=== PATIENT | female | born 1930 | race Hispanic/Latino ===

== ENCOUNTER 2018-05-28 11:01 | Observation (INO) | payer OTHER, MEDICARE ==
--- NOTE | 2018-05-28 11:31 | RAD REPORT ---
EXAM DESCRIPTION: CT - Ct Stroke Brain Wo Cont - 05/28/2018 11:22 am CLINICAL HISTORY: Right arm numbness COMPARISON: None. TECHNIQUE: Computed axial tomography of the head was obtained. IV contrast was not requested. All CT scans are performed using dose optimization technique as appropriate and may include automated exposure control or mA/KV adjustment according to patient size. FINDINGS: An intracranial bleed is not seen . The ventricles are normal in caliber. No extra-axial fluid collection is noted. A 5 millimeter low-density areas present within the left th alamus. Mild low-density areas within periventricular deep white matter likely represent ischemic alexa nges secondary to small vessel disease. Fluid within the sinuses/ mastoids is not seen. IMPRESSION: 5 millimeter low-density area within the left thalamus probably representing a lacunar i nfarct of indeterminate age. If clinically indicated further evaluation with MRI could be obtained. Examination was discussed with Aliza in the Emergency Room at 11:20 a.m. 05/28/2018
[2018-05-28 11:46] LABS: Absolute Lymphocytes (CBC) 1.7 K/uL (0.7-4.9); Absolute Monocytes 0.9 K/uL (0.1-1.3); Absolute Neutrophil 8.1 K/uL (1.8-8.0); Basophils % 0.8 % (0-1.3); Eosinophils % 0.3 % (0-4.4); Hematocrit 41.9 % (36.0-45.0); Lymphocytes % 15.5 % (15.3-44.8); MCH 30.4 pg (27.0-35.0); MPV 8.8 fL (7.6-11.3); Monocytes % 8.4 % (3.3-12.3); RBC Red Blood Cell Count 4.71 M/uL (3.86-4.86)
[2018-05-28 11:50] LABS: Protime INR 0.91
[2018-05-28 12:01] LABS: ALT/SGPT 21 U/L (12-78); AST/SGOT 26 U/L (15-37); Alkaline Phosphatase 75 U/L (45-117); BUN Blood Urea Nitrogen 25 mg/dL (7-18); Bicarbonate 28 mmol/L (21-32); Bilirubin Direct 0.2 mg/dL (0-0.2); Bilirubin Total 0.5 mg/dL (0.2-1.0); Creatine Phosphokinase 107 U/L (26-192); Glucose Level 108 mg/dL (74-106); Potassium 3.5 mmol/L (3.5-5.1); Protein, Total 7.9 g/dL (6.4-8.2); Sodium Level 136 mmol/L (136-145); Troponin (Emerg Dept Use Only) < 0.02 ng/mL (0.0-0.045)
--- NOTE | 2018-05-28 12:07 | RAD REPORT ---
EXAM DESCRIPTION: RAD - Chest Single View - 05/28/2018 11:54 am CLINICAL HISTORY: ams Chest pain. COMPARISON: CHEST SINGLE VIEW dated 12/08/2012; CHEST PA AND LAT 2 VIEW dated 10/27/2007; CHEST PA AND LAT 2 VIEW dated 07/11/2006 FINDINGS: Portable technique limits examination quality. The lungs are emphysematous but grossly clear. The heart is normal in size. No displaced fractures. IMPRESSION: Mild COPD.
[2018-05-28 12:32] LABS: Urine Blood TRACE (NEG); Urine Glucose NEGATIVE (NEG); Urine Protein 3+ (NEG); Urine pH 7.5 (5.0-7.0)
--- NOTE | 2018-05-28 12:44 | ER ---
Nurse's Notes [facility] Name: Monica Rankin Age: 87 yrs Sex: Female : 1930 Arrival Date: 05/28/2018 Time: 11:05 Bed 16 Private MD: Lyssa Schwartz H Diagnosis: Hypertensive heart disease;Right hand tingling, 5 mm left thalmic infact: indeterminate age Presentation: 05/28 11:10 Presenting complaint: Patient states: "My blood pressure has been really high and I aj don't feel good. At 8:30 this morning my right arm started to tingle and feel strange." Face is symmetrical, speech is clear. Transition of care: patient was not received from another setting of care. 11:10 Method Of Arrival: Ambulatory 11:15 No acute neurological deficit is noted. Pre-hospital glucose is not applicable to this aj patient. Onset of symptoms was May 28, 2018 at 08:30. Risk Assessment: Do you want to hurt yourself or someone else? Patient reports no desire to harm self or others. Initial Sepsis Screen: Does the patient meet any 2 criteria? No. Patient's initial sepsis screen is negative. Does the patient have a suspected source of infection? No. Patient's initial sepsis screen is negative. Care prior to arrival: None. 11:15 Acuity: JESUS 2 Triage Assessment: 11:29 The onset of the patients symptoms was May 28, 2018 at 08:30. General: Appears in aj no apparent distress. uncomfortable, Behavior is cooperative, anxious. Pain: Denies pain. Neuro: Level of Consciousness is awake, alert, obeys commands, Oriented to person, place, time, situation, Appropriate for age Outsole Scheduler are equal bilaterally Moves all extremities. Full function Gait is steady, Speech is normal, Facial symmetry appears normal, Pupils are PERRLA, Tingling in right arm Reports blurred vision. Respiratory: Airway is patent Respiratory effort is even, unlabored, Respiratory pattern is regular, symmetrical. Derm: Skin is intact, is healthy with good turgor, Skin is pink, warm \\T\\ dry. normal. Stroke Activation: Symptom onset < 3 hours Physician: Stroke Attending; Name: ; Notified At: ; Arrived At: Physician: Chief Stroke Resident; Name: ; Notified At: ; Arrived At: Physician: Stroke Resident; Name: ; Notified At: ; Arrived At: Physician: ED Attending; Name: ; Notified At: ; Arrived At: Physician: ED Resident; Name: ; Notified At: ; Arrived At: Historical: - Allergies: : Codeine; aj : Iodine; aj : PENICILLINS; aj - Home Meds: : amlodipine 5 mg tab 1 tab once daily [Active]; Grey Chewable Aspirin 81 mg Oral chew 1 aj tab once daily [Active]; Calci-Chew Oral [Active]; dicyclomine 20 mg Oral tab 1 tab Q 6 hours [Active]; losartan Oral [Active]; simvastatin 20 mg Oral tab 1 tab [Active]; Vitamin C Oral [Active]; - PMHx: Hyperlipidemia; Hypertension; aj - PSHx: Knee surgery; hip surgery; Hysterectomy; aj - Immunization history:: Adult Immunizations up to date. - Social history:: Smoking status: Patient/guardian denies using tobacco. - Ebola Screening: : Patient negative for fever greater than or equal to 101.5 degrees Fahrenheit, and additional compatible Ebola Virus Disease symptoms Patient denies exposure to infectious person Patient denies travel to an Ebola-affected area in the 21 days before illness onset No symptoms or risks identified at this time. Screenin:00 Abuse screen: Denies threats or abuse. Denies injuries from another. Nutritional sg screening: No deficits noted. Tuberculosis screening: No symptoms or risk factors identified. Never had TB. Fall Risk None identified. Assessment: 12:00 The patient has not been NPO before screening. The patient is alert, and able to follow sg commands. The patient does not exhibit slurred or garbled speech. The patient is not exhibiting difficulty speaking. The patient does not exhibit difficulty understanding words. The patient is able to swallow own secretions with no drooling or need for suction. Patient tolerated one teaspoon of water. No drooling, immediate coughing, gurgling, or clearing of the throat was noted. The patient tolerated 90mL of water. No drooling, immediate coughing, gurgling, or clearing of the throat was noted. The patient passed the bedside swallow screening. Oral medications may be given as ordered. Contact Physician for further diet orders. 12:30 Reassessment: pt daughter in law at nurses station requesting an updated on results, pt sg and pt family update on POC and that the provider will be in the room to discuss the results with the pt. pt daughter in law reports that her the pt son is in route to the facility. 12:46 Reassessment: Patient appears in no apparent distress at this time. at bedside sg evaluating pt at this time, updating pt and pt family on results. 13:10 Reassessment: notified of pt VS, new orders received at this time. sg 14:08 Reassessment: Patient and/or family updated on plan of care and expected duration. Pain dm5 level reassessed. Patient is alert, oriented x 3, equal unlabored respirations, skin warm/dry/pink. family at bedside, no needs at this time Patient states feeling better. 15:17 Reassessment: Patient appears in no apparent distress at this time. No changes from tl3 previously documented assessment. Patient and/or family updated on plan of care and expected duration. Pain level reassessed. Patient is alert, oriented x 3, equal unlabored respirations, skin warm/dry/pink. report called to Millicent Sin RN. 15:19 Provider notified of bedside swallow screening results: Trent Clarke MD. tl3 15:19 T-PA (Activase) Screening: Contraindications: Intracranial hemorrhage and its risk tl3 factor and suspicion of subarachnoid bleed: Yes. Vital Signs: 11:29 BP 226 / 76; Pulse 76; Resp 20; Temp 98.0; Pulse Ox 99% on R/A; Weight 67.59 kg; Height aj 5 ft. 2 in. (157.48 cm); 12:58 BP 269 / 92; Pulse 78; Resp 18 S; Pulse Ox 99% on R/A; sg 14:08 BP 122 / 66; Pulse 56; Resp 18; Pulse Ox 97% on R/A; dm5 15:13 BP 131 / 61; Pulse 52; Resp 18; Pulse Ox 99% on R/A; tl3 11:29 Body Mass Index 27.25 (67.59 kg, 157.48 cm) aj NIH Stroke Scale Scores: 11:34 NIHSS Score: 0 dm5 12:30 NIHSS Score: 0 kdr ED Course: 11:05 Patient arrived in ED. mr 11:05 Lyssa Schwartz DO is Private Physician. mr 11:22 CT Stroke Brain w/o Contrast In Process Unspecified. EDMS 11:28 Triage completed. aj 11:29 Arm band placed on left wrist. Patient Taken to CT by nurse then returned to room. aj 11:30 Initial lab(s) drawn, by ED staff, sent to lab. IV inserted by ED staff. Inserted sg saline lock: 20 gauge in left antecubital area, using aseptic technique. Blood collected. 11:38 Garrett Capone PA is PHCP. cp 11:38 Trent Clarke MD is Attending Physician. cp 11:39 EKG done, by environmental sampling technician. reviewed by Trent lCarke MD. sm3 11:40 Corbin Post, DANIEL is Primary Nurse. sg 11:41 X-ray completed. Portable x-ray completed in exam room. Patient tolerated procedure jr1 well. 11:43 Stroke CXR 1 View In Process Unspecified. EDMS 12:42 Pat Whitman MD is Hospitalizing Provider. kdr 14:03 Lori Guzman, RN is Primary Nurse. dm5 15:17 Patient has correct armband on for positive identification. tl3 15:17 No provider procedures requiring assistance completed. Patient admitted, IV remains in tl3 place. Administered Medications: 13:19 Drug: cloNIDine 0.2 mg Route: PO; dm5 14:07 Follow up: Response: Blood pressure is lowered dm5 13:19 Drug: Lopressor 5 mg Route: IVP; Infused Over: 3 mins; Site: left antecubital; tl3 14:07 Follow up: Response: Blood pressure is lowered dm5 Point of Care Testing: Blood Glucose: 11:33 Blood Glucose: 95 mg/dL; dm5 Ranges: Outcome: 12:44 Decision to Hospitalize by Provider. kdr 15:17 Admitted to Tele accompanied by tech, via wheelchair, with chart, Report called to tl3 Millicent SANCHEZ 15:17 Condition: stable 15:17 Instructed on the need for admit. 15:47 Patient left the ED. tl3 NIH Stroke Scale - NIH Stroke Score Date: 05/28/2018 Time: 11:34 Total Score = 0 1a. Level of Consciousness (LOC) - 0(Alert) 1b. Level of Consciousness (LOC) (Year \\T\\ Age) - 0(Both) 1c. LOC Commands (Open \\T\\ Closes Eyes/Airline Pilot Flight Instructor) - 0(Both) 2. Best Gaze (Lateral Gaze Paresis) - 0(Normal) 3. Visual Field Loss - 0(No visual loss) 4. Facial Palsy - 0(Normal) 5a. Left Arm: Motor (10-second hold) - 0(No drift) 5b. Right Arm: Motor (10-second hold) - 0(No drift) 6a. Left Leg: Motor (5-second hold - always test supine) - 0(No drift) 6b. Right Leg: Motor (5-second hold - always test supine) - 0(No drift) 7. Limb Ataxia (finger/nose \\T\\ heel/carvajal - test with eyes open) - 0(Absent) 8. Sensory Loss (pinprick arms/legs/face) - 0(Normal) 9. Best Language: Aphasia (description/naming/reading) - 0(No aphasia) 10. Dysarthria (speech clarity - read or repeat words) - 0(Normal) 11. Extinction and Inattention (visual/tactile/auditory/spatial/personal) - 0(No abnormality) Initials: dm5 NIH Stroke Scale - NIH Stroke Score Date: 05/28/2018 Time: 12:30 Total Score = 0 1a. Level of Consciousness (LOC) - 0(Alert) 1b. Level of Consciousness (LOC) (Year \\T\\ Age) - 0(Both) 1c. LOC Commands (Open \\T\\ Closes Eyes/Airline Pilot Flight Instructor) - 0(Both) 2. Best Gaze (Lateral Gaze Paresis) - 0(Normal) 3. Visual Field Loss - 0(No visual loss) 4. Facial Palsy - 0(Normal) 5a. Left Arm: Motor (10-second hold) - 0(No drift) 5b. Right Arm: Motor (10-second hold) - 0(No drift) 6a. Left Leg: Motor (5-second hold - always test supine) - 0(No drift) 6b. Right Leg: Motor (5-second hold - always test supine) - 0(No drift) 7. Limb Ataxia (finger/nose \\T\\ heel/carvajal - test with eyes open) - 0(Absent) 8. Sensory Loss (pinprick arms/legs/face) - 0(Normal) 9. Best Language: Aphasia (description/naming/reading) - 0(No aphasia) 10. Dysarthria (speech clarity - read or repeat words) - 0(Normal) 11. Extinction and Inattention (visual/tactile/auditory/spatial/personal) - 0(No abnormality) Initials: kdr Signatures: Dispatcher [employer] Lori Velazquez RN RN dm5 Corbin Post RN Tiffany Hough RN Trent Gordon MD MD [facility] Janice Santiago mr [place], Katarzyna jr1 Garrett Capone PA PA cp Lowrey, Tammy, RN RN tl3 Aida Denson sm3
--- NOTE | 2018-05-28 12:45 | EDPHYS ---
Physician Documentation [facility] Name: Monica Rankin Age: 87 yrs Sex: Female : 1930 Arrival Date: 05/28/2018 Time: 11:05 Bed 16 Private MD: Lyssa Schwartz H ED Physician Trent Clarke HPI: 05/28 15:47 This 87 yrs old Female presents to ER via Ambulatory with complaints of High kdr Blood Pressure, Doesn't Feel Right. 15:49 The patient states that her BP has been poorly controlled for the last week and when it kdr gets elevated, she feels bad. She has had no focal c/o until this morning when she awoke, she felt that her right hand was tingling and numb. The discomfort and not changed since she awakened. She has not had this before and no other focal c/o. Onset: The symptoms/episode began/occurred at an unknown time. Severity of symptoms: At their worst the symptoms were very mild in the emergency department the symptoms are unchanged. The patient has not experienced similar symptoms in the past. The patient has been recently seen by a physician: the patient's primary care provider. Historical: - Allergies: 11:29 Codeine; aj 11:29 Iodine; aj 11:29 PENICILLINS; aj - Home Meds: 11:29 amlodipine 5 mg tab 1 tab once daily [Active]; Grey Chewable Aspirin 81 mg Oral chew 1 aj tab once daily [Active]; Calci-Chew Oral [Active]; dicyclomine 20 mg Oral tab 1 tab Q 6 hours [Active]; losartan Oral [Active]; simvastatin 20 mg Oral tab 1 tab [Active]; Vitamin C Oral [Active]; - PMHx: 11:29 Hyperlipidemia; Hypertension; aj - PSHx: 11:29 Knee surgery; hip surgery; Hysterectomy; aj - Immunization history:: Adult Immunizations up to date. - Social history:: Smoking status: Patient/guardian denies using tobacco. - Ebola Screening: : Patient negative for fever greater than or equal to 101.5 degrees Fahrenheit, and additional compatible Ebola Virus Disease symptoms Patient denies exposure to infectious person Patient denies travel to an Ebola-affected area in the 21 days before illness onset No symptoms or risks identified at this time. ROS: 15:49 Constitutional: Negative for fever, chills, and weight loss - vague symptoms whioch she kdr has difficulty describing Eyes: Negative for injury, pain, redness, and discharge, ENT: Negative for injury, pain, and discharge, Neck: Negative for injury, pain, and swelling, Cardiovascular: Negative for chest pain, palpitations, and edema, Respiratory: Negative for shortness of breath, cough, wheezing, and pleuritic chest pain, Abdomen/GI: Negative for abdominal pain, nausea, vomiting, diarrhea, and constipation, Back: Negative for injury and pain, : Negative for injury, bleeding, discharge, and swelling, MS/Extremity: Negative for injury and deformity, Skin: Negative for injury, rash, and discoloration, Psych: Negative for depression, anxiety, suicide ideation, homicidal ideation, and hallucinations, Allergy/Immunology: Negative for hives, rash, and allergies, Endocrine: Negative for neck swelling, polydipsia, polyuria, polyphagia, and marked weight changes, Hematologic/Lymphatic: Negative for swollen nodes, abnormal bleeding, and unusual bruising. 15:49 Neuro: Positive for tingling, of the right hand. Exam: 15:49 Constitutional: This is a well developed, well nourished patient who is awake, alert, kdr and in no acute distress. Head/Face: Normocephalic, atraumatic. Eyes: Pupils equal round and reactive to light, extra-ocular motions intact. Lids and lashes normal. Conjunctiva and sclera are non-icteric and not injected. Cornea within normal limits. Periorbital areas with no swelling, redness, or edema. Neck: Trachea midline, no thyromegaly or masses palpated, and no cervical lymphadenopathy. Supple, full range of motion without nuchal rigidity, or vertebral point tenderness. No Meningismus. Chest/axilla: Normal chest wall appearance and motion. Nontender with no deformity. No lesions are appreciated. Cardiovascular: Regular rate and rhythm with a normal S1 and S2. No gallops, murmurs, or rubs. Normal PMI, no JVD. No pulse deficits. Respiratory: Lungs have equal breath sounds bilaterally, clear to auscultation and percussion. No rales, rhonchi or wheezes noted. No increased work of breathing, no retractions or nasal flaring. Abdomen/GI: Soft, non-tender, with normal bowel sounds. No distension or tympany. No guarding or rebound. No evidence of tenderness throughout. Back: No spinal tenderness. No costovertebral tenderness. Full range of motion. Skin: Warm, dry with normal turgor. Normal color with no rashes, no lesions, and no evidence of cellulitis. MS/ Extremity: Pulses equal, no cyanosis. Neurovascular intact. Full, normal range of motion. Neuro: Awake and alert, GCS 15, oriented to person, place, time, and situation. Cranial nerves II-XII grossly intact. Motor strength 5/5 in all extremities. Sensory grossly intact. Cerebellar exam normal. Normal gait. Psych: Awake, alert, with orientation to person, place and time. Behavior, mood, and affect are within normal limits. Vital Signs: 11:29 BP 226 / 76; Pulse 76; Resp 20; Temp 98.0; Pulse Ox 99% on R/A; Weight 67.59 kg; Height aj 5 ft. 2 in. (157.48 cm); 12:58 BP 269 / 92; Pulse 78; Resp 18 S; Pulse Ox 99% on R/A; sg 14:08 BP 122 / 66; Pulse 56; Resp 18; Pulse Ox 97% on R/A; dm5 15:13 BP 131 / 61; Pulse 52; Resp 18; Pulse Ox 99% on R/A; tl3 11:29 Body Mass Index 27.25 (67.59 kg, 157.48 cm) NIH Stroke Scale Scores: 11:34 NIHSS Score: 0 dm5 12:30 NIHSS Score: 0 kdr MDM: 11:38 Patient medically screened. cp 12:44 Data reviewed: vital signs, nurses notes, lab test result(s), EKG, radiologic studies. kdr Counseling: I had a detailed discussion with the patient and/or guardian regarding: the historical points, exam findings, and any diagnostic results supporting the discharge/admit diagnosis, the presence of at least one elevated blood pressure reading (>120/80) during this emergency department visit, lab results, radiology results, the need for further work-up and treatment in the hospital. Physician consultation: Aguila Higgins MD was called at 12:15, was contacted at 12:15, regarding admission, consult, patient's condition, need to evaluate the patient as soon as possible, and will see patient in inpatient room. ED course: Since stroke scale 0 and onset unclear (note upon awakening at 07:30), tPA not indicated. 05/28 11:18 Order name: Hepatic Function; Complete Time: 12:29 snw 05/28 11:18 Order name: Ckmb; Complete Time: 12:29 snw 05/28 11:18 Order name: CPK; Complete Time: 12:29 snw 05/28 11:18 Order name: Troponin (emerg Dept Use Only); Complete Time: 12:29 snw 05/28 11:18 Order name: Basic Metabolic Panel; Complete Time: 12:29 snw 05/28 11:18 Order name: CBC with Diff; Complete Time: 12:29 snw 05/28 11:18 Order name: Protime (+inr); Complete Time: 12:29 snw 05/28 11:18 Order name: Ptt, Activated; Complete Time: 12:29 snw 05/28 11:18 Order name: Urine Microscopic Only snw 05/28 11:18 Order name: CT Stroke Brain w/o Contrast; Complete Time: 12:29 snw 05/28 11:18 Order name: Stroke CXR 1 View; Complete Time: 12:29 snw 05/28 12:26 Order name: Urine Dipstick--Ancillary (enter results); Complete Time: 12:36 bd 05/28 11:18 Order name: Call for Old EKG; Complete Time: 12:17 snw 05/28 11:18 Order name: EKG; Complete Time: 11:18 snw 05/28 11:18 Order name: Accucheck; Complete Time: 12:43 snw 05/28 11:18 Order name: Cardiac monitoring; Complete Time: 12:43 snw 05/28 11:18 Order name: EKG - Nurse/Tech; Complete Time: 12:43 snw 05/28 11:18 Order name: IV Saline Lock; Complete Time: 12:43 snw 05/28 11:18 Order name: Labs collected and sent; Complete Time: 12:43 snw 05/28 11:18 Order name: NPO; Complete Time: 12:43 snw 05/28 11:18 Order name: O2 Per Protocol; Complete Time: 12:44 snw 05/28 11:18 Order name: O2 Sat Monitoring; Complete Time: 12:44 snw 05/28 11:18 Order name: Stroke Swallow Screen; Complete Time: 12:44 snw 05/28 11:18 Order name: Urine Dipstick-Ancillary (obtain specimen); Complete Time: 12:44 snw Administered Medications: 13:19 Drug: cloNIDine 0.2 mg Route: PO; dm5 14:07 Follow up: Response: Blood pressure is lowered dm5 13:19 Drug: Lopressor 5 mg Route: IVP; Infused Over: 3 mins; Site: left antecubital; tl3 14:07 Follow up: Response: Blood pressure is lowered dm5 Point of Care Testing: Blood Glucose: 11:33 Blood Glucose: 95 mg/dL; dm5 Ranges: Critical Glucose Levels:Adult <50 mg/dl or >400 mg/dl <40 mg/dl or >180 mg/dl Disposition: 05/28/18 12:44 Hospitalization ordered by Pat Whitman for Observation. Preliminary diagnosis are Hypertensive heart disease, Right hand tingling, 5 mm left thalmic infact: indeterminate age. - Bed requested for Telemetry/MedSurg (observation). - Status is Observation. tl3 - Condition is Fair. - Problem is new. - Symptoms are unchanged. UTI on Admission? No NIH Stroke Scale - NIH Stroke Score Date: 05/28/2018 Time: 11:34 Total Score = 0 1a. Level of Consciousness (LOC) - 0(Alert) 1b. Level of Consciousness (LOC) (Year \T\ Age) - 0(Both) 1c. LOC Commands (Open \T\ Closes Eyes/Correctional Officer Captain) - 0(Both) 2. Best Gaze (Lateral Gaze Paresis) - 0(Normal) 3. Visual Field Loss - 0(No visual loss) 4. Facial Palsy - 0(Normal) 5a. Left Arm: Motor (10-second hold) - 0(No drift) 5b. Right Arm: Motor (10-second hold) - 0(No drift) 6a. Left Leg: Motor (5-second hold - always test supine) - 0(No drift) 6b. Right Leg: Motor (5-second hold - always test supine) - 0(No drift) 7. Limb Ataxia (finger/nose \T\ heel/carvajal - test with eyes open) - 0(Absent) 8. Sensory Loss (pinprick arms/legs/face) - 0(Normal) 9. Best Language: Aphasia (description/naming/reading) - 0(No aphasia) 10. Dysarthria (speech clarity - read or repeat words) - 0(Normal) 11. Extinction and Inattention (visual/tactile/auditory/spatial/personal) - 0(No abnormality) Initials: dm5 NIH Stroke Scale - NIH Stroke Score Date: 05/28/2018 Time: 12:30 Total Score = 0 1a. Level of Consciousness (LOC) - 0(Alert) 1b. Level of Consciousness (LOC) (Year \T\ Age) - 0(Both) 1c. LOC Commands (Open \T\ Closes Eyes/Correctional Officer Captain) - 0(Both) 2. Best Gaze (Lateral Gaze Paresis) - 0(Normal) 3. Visual Field Loss - 0(No visual loss) 4. Facial Palsy - 0(Normal) 5a. Left Arm: Motor (10-second hold) - 0(No drift) 5b. Right Arm: Motor (10-second hold) - 0(No drift) 6a. Left Leg: Motor (5-second hold - always test supine) - 0(No drift) 6b. Right Leg: Motor (5-second hold - always test supine) - 0(No drift) 7. Limb Ataxia (finger/nose \T\ heel/carvajal - test with eyes open) - 0(Absent) 8. Sensory Loss (pinprick arms/legs/face) - 0(Normal) 9. Best Language: Aphasia (description/naming/reading) - 0(No aphasia) 10. Dysarthria (speech clarity - read or repeat words) - 0(Normal) 11. Extinction and Inattention (visual/tactile/auditory/spatial/personal) - 0(No abnormality) Initials: kdr Signatures: Dispatcher [employer] EDMS Day Chavez Deana, RN RN dm5 Corbin Post RN Tiffany Hough RN RN aj Rittger, Kevin, MD MD kdr Therrien, Shelly, ACUTE CARE PHYSICAL THERAPIST-C ACUTE CARE PHYSICAL THERAPIST-Csnw Garrett Capone PA PA cp Lowrey, Tammy, RN RN tl3 Tesha Coleman Corrections: (The following items were deleted from the chart) 14:58 12:44 Hospitalization Ordered by Pat Whitman MD for Observation. Preliminary bd diagnosis is Hypertensive heart disease; Right hand tingling, 5 mm left thalmic infact: indeterminate age. Bed requested for Telemetry/MedSurg (observation). Status is Observation. Condition is Fair. Problem is new. Symptoms are unchanged. UTI on Admission? No. kdr 15:47 14:58 05/28/2018 12:44 Hospitalization Ordered by Pat Whitman MD for tl3 Observation. Preliminary diagnosis is Hypertensive heart disease; Right hand tingling, 5 mm left thalmic infact: indeterminate age. Bed requested for Telemetry/MedSurg (observation). Status is Observation. Condition is Fair. Problem is new. Symptoms are unchanged. UTI on Admission? No. bd
[2018-05-28] MEDS ORDERED: cloNIDine HCl 0.1 MG TAB ONE (13:14)
[2018-05-28] MEDS ORDERED: METOPROLOL TARTRATE 5 MG/5 ML INJ IV ONE (13:14)
--- NOTE | 2018-05-28 14:07 | P.HP ---
Certification for Inpatient Patient admitted to: Inpatient With expected LOS: >2 Midnights Practitioner: I am a practitioner with admitting privileges, knowledge of patient current condition, hospital course, and medical plan of care. Services: Services provided to patient in accordance with Admission requirements found in Title 42 Section 412.3 of the Code of Federal Regulations Patient History Date of Service: 05/28/18 Primary Care Provider: Dr Mercer Reason for admission: CVA History of Present Illness: This is a 87-year-old female with significant past medical history Of high blood pressure, hyperlipidemia, who presented to the ED complaining of having some neck pain and uncontrolled hypertension. Patient stated that this morning when she woke up she was having some numbness and tingling in bilateral upper extremities and thus decided to come to the ER for further workup. Patient stated that she has been having elevated blood pressure for past week and has been followed up with her primary care doctor has been adjusting her blood pressure medication for past couple of weeks. Patient denies having any other symptoms at this time. It is denies having any shortness of breath fever chills nausea vomiting chest pain or any other neurological deficits. In the ER patient was found to have hypertensive urgency along with CT scan which was consistent with thalamic infarct and thus was referred over to admission for further workup. Allergies iodine Allergy (Severe, Verified 12/08/12 11:20) Anaphylaxis codeine [Codeine] Allergy (Intermediate, Verified 12/08/12 11:20) Nausea Penicillins Allergy (Intermediate, Verified 12/08/12 11:20) Hives Home medications list reviewed: Yes - Past Medical/Surgical History Has patient received pneumonia vaccine in the past: No Diabetic: No -: HTN -: HLP Review of Systems 10-point ROS is otherwise unremarkable Physical Examination - Physical Exam General: Alert, In no apparent distress HEENT: Atraumatic, PERRLA, Mucous membr. moist/pink, EOMI, Sclerae nonicteric Neck: Supple, 2+ carotid pulse no bruit, No LAD, Without JVD or thyroid abnormality Respiratory: Clear to auscultation bilaterally, Normal air movement Cardiovascular: Regular rate/rhythm, Normal S1 S2 Gastrointestinal: Normal bowel sounds, No tenderness Musculoskeletal: No tenderness Integumentary: No rashes Neurological: Normal gait, Normal speech, Normal strength at 5/5 x4 extr, Normal tone, Normal affect Lymphatics: No axilla or inguinal lymphadenopathy - Studies Laboratory Data (last 24 hrs) 05/28/18 11:28: PT 10.7, INR 0.91, APTT 34.1 05/28/18 11:28: WBC 10.9, Hgb 14.3, Hct 41.9, Plt Count 221 05/28/18 11:28: Sodium 136, Potassium 3.5, BUN 25 H, Creatinine 0.80, Glucose 108 H, Total Bilirubin 0.5, AST 26, ALT 21, Alkaline Phosphatase 75 Assessment and Plan - Problems (Diagnosis) (1) Hypertensive urgency Current Visit: Yes Status: Acute Plan: Hypertensive urgency at this time. -will restart home medication. -permissive hypertension due to recent changes in the head CT. Will should be 160/90 at this time. (2) Thalamic infarction Current Visit: Yes Status: Acute Plan: Head CT without make infarct. Unknown timeframe. -will get MRI stroke protocol, carotid Doppler, echocardiogram at this time. -will get lab work RPR, vitamin B12, ESR as well. -aspirin Plavix and Lipitor ordered already -neurology consultation at this time. (3) HTN (hypertension) Current Visit: Yes Status: Chronic (4) Hyperlipidemia Current Visit: Yes Status: Chronic Discharge Plan: Home Plan to discharge in: 72 Hours - Advance Directives Does patient have a Living Will: No Does patient have a Durable POA for Healthcare: No - Code Status/Comfort Care Code Status Assessed: Yes Critical Care: No
[2018-05-28] MEDS ORDERED: ACETAMINOPHEN 500 MG TAB PO PRN (16:00)
[2018-05-28] MEDS ORDERED: ONDANSETRON 4 MG/2 ML VIAL IV PRN (16:00)
[2018-05-28 16:24] LABS: RPR Titer ND
--- NOTE | 2018-05-28 19:08 | RAD REPORT ---
EXAM DESCRIPTION: MRI - MRA Neck W/Wo Cont - 05/28/2018 6:56 pm CLINICAL HISTORY: CVA COMPARISON: None. TECHNIQUE: Magnetic resonance angiogram of the neck was performed. 15 cc MultiHance was administered intravenously. . 3D MIP reconstruction was performed FINDINGS: Mild plaque is present the within the common carotid, internal carotid and external caroti d arteries. An aneurysm is not seen. The left vertebral artery is more dominant than the right without visualization of an abnormality. IMPRESSION: No significant abnormality is displayed
--- NOTE | 2018-05-28 19:10 | RAD REPORT ---
EXAM DESCRIPTION: MRI - MRA Head Wo Cont - 05/28/2018 6:57 pm COMPARISON: None. TECHNIQUE: Magnetic resonance angiogram of the head was performed. 3D MIP reconstruction was performed FINDINGS: The visualized anterior cerebral, middle cerebral, posterior cerebral, basilar and distal internal carotid arteries do not demonstrate a significant stenosis. An aneurysm is not seen IMPRESSION: Unremarkable MRA head
--- NOTE | 2018-05-28 19:18 | RAD REPORT ---
EXAM DESCRIPTION: MRI - Brain W/Wo Cont - 05/28/2018 6:56 pm CLINICAL HISTORY: CVA COMPARISON: Head CT May 28, 2018 TECHNIQUE: Axial, sagittal, and coronal magnetic images of the brain were obtained. 15 cc MultiHance was administered intravenously FINDINGS: 6 millimeter area of abnormal signal within the left thalamus has the appearance of an old infarct. Small areas of abnormal signal within the basal ganglia are old lacunar infarcts. Mild to m oderate signal within periventricular and deep white matter likely represents ischemic changes second woodrow to small vessel disease. Diffusion-weighted/ADC mapping does not reveal evidence of acute infarction. The ventricles are normal caliber. No abnormal enhancement within the brain is seen. An extra-axial fluid collection is not noted. Fluid within the sinuses/mastoids is not seen IMPRESSION: No acute intracranial abnormality is seen
--- NOTE | 2018-05-28 19:37 | RAD REPORT ---
EXAM DESCRIPTION: USCarotid Artery Bilateral05/28/2018 7:26 pm CLINICAL HISTORY: cva FINDINGS: The velocity of the right internal carotid artery equals 150 cm/sec. The right ICA/CCA rat io 2.6 The velocity of the left internal carotid artery equals 139 cm/sec. The left ICA/CCA ratio 2.2 Mild plaque is present within the carotid arteries. The carotid arteries are tortuous The vertebral arteries demonstrate antegrade flow IMPRESSION: Mild plaque within the carotid arteries without evidence of a hemodynamically significan t stenosis. Elevated internal carotid artery velocities are likely secondary to tortuosity
[2018-05-28] MEDS: HYDRALAZINE HCL 25 MG TABLET PO SCH (20:51)
[2018-05-28] MEDS ORDERED: HOME MED 1 EA UNK (Hydralazine Hcl [Apresoline] 1 TAB) PO SCH (21:00)
[2018-05-28] MEDS ORDERED: ATORVASTATIN 80 MG TAB PO SCH (21:00)
[2018-05-28] MEDS ORDERED: PNEUMOCOCCAL VACCINE 0.5 ML IMVAC ONE (21:00)
[2018-05-28 23:07] LABS: RPR (Rapid Plasma Reagin) NON-REACT (NON-REACT)
[2018-05-29 04:48] LABS: Absolute Monocytes 0.8 K/uL (0.1-1.3); Absolute Neutrophil 4.5 K/uL (1.8-8.0); Hematocrit 36.2 % (36.0-45.0); Lymphocytes % 26.5 % (15.3-44.8); MCH 30.4 pg (27.0-35.0); MCV 87.5 fL (80-100); MPV 8.8 fL (7.6-11.3); Monocytes % 10.9 % (3.3-12.3); RBC Red Blood Cell Count 4.14 M/uL (3.86-4.86)
[2018-05-29 05:18] LABS: ALT/SGPT 18 U/L (12-78); AST/SGOT 20 U/L (15-37); Albumin 3.3 g/dL (3.4-5.0); Alkaline Phosphatase 61 U/L (45-117); BUN Blood Urea Nitrogen 24 mg/dL (7-18); Bicarbonate 30 mmol/L (21-32); Bilirubin Total 0.7 mg/dL (0.2-1.0); Glucose Level 91 mg/dL (74-106); HDL Cholesterol 69 mg/dL (40-60); LDL, Direct 64 mg/dL (100-129); Magnesium 1.9 mg/dL (1.8-2.4); Phosphorus 3.6 mg/dL (2.5-4.9); Potassium 3.4 mmol/L (3.5-5.1); Protein, Total 6.3 g/dL (6.4-8.2); Sodium Level 138 mmol/L (136-145)
[2018-05-29] MEDS ORDERED: POTASSIUM CL SA 10 MEQ TAB PO ONE (06:08)
--- NOTE | 2018-05-29 07:37 | EKG ---
Test Date: 2018-05-28 Test Time: 11:33:39 Wire Spinner: JENNY MEASUREMENT RESULTS: Intervals: Rate: 83 PA: 162 QRSD: 70 QT: 404 QTc: 474 Bard: P: 54 PA: 162 QRS: 19 T: 60 INTERPRETIVE STATEMENTS: Sinus rhythm with premature atrial complexes Otherwise normal ECG Compared to ECG 12/08/2012 12:14:32 Atrial premature complex(es) now present Sinus bradycardia no longer present Electronically Signed On 05-29-18 07:34:30 CDT by Emre Salinas
[2018-05-29] MEDS ORDERED: METOPROLOL XL 50 MG TAB PO SCH (09:00)
[2018-05-29] MEDS ORDERED: ASPIRIN EC 81 MG TAB PO SCH (09:00)
[2018-05-29] MEDS ORDERED: MONTELUKAST 10 MG TAB PO SCH (09:00)
[2018-05-29] MEDS ORDERED: CLOPIDOGREL 75 MG TABLET PO SCH (09:00)
[2018-05-29] MEDS: HYDRALAZINE HCL 25 MG TABLET PO SCH (10:15)
--- NOTE | 2018-05-29 10:20 | RAD REPORT ---
EXAM DESCRIPTION: RAD - Barium Swallow Modified - 05/29/2018 9:40 am CLINICAL HISTORY: Difficulty swallowing COMPARISON: None. TECHNIQUE: The patient was given liquid, semi-solid and solid forms of barium. Lateral view fluorosc opic imaging was performed in conjunction with speech pathology service. FINDINGS: Approximately 26 CVA loop sequences were obtained. Fluoro time was 3 minutes 58 seconds. Laryngeal penetration occurred with thin liquid barium. There was residual contrast in the valleculae , piriform sinuses and along the posterior wall. No aspiration confirmed. Diminished esophageal peris talsis noted. IMPRESSION: Modified barium swallow as detailed above and on speech pathology report.
--- NOTE | 2018-05-29 12:16 | ECHO ---
HEIGHT: 5 ft 2 in WEIGHT: 149 lb 0 oz DATE OF STUDY: 05/29/[address]: Pat Whitman MD 2-DIMENSIONAL: YES M.MODE: YES DOPPLER: YES COLOR FLOW: YES TDS: PORTABLE: DEFINITY: BUBBLE STUDY: DIAGNOSIS: STROKE CARDIAC HISTORY: CATHERIZATION: NO SURGERY: NO PROSTHETIC VALVE: NO PACEMAKER: NO MEASUREMENTS (cm) DIASTOLIC (NORMALS) SYSTOLIC (NORMALS) IVSd 1.1 (0.6-1.2) LA Diam 3.5 (1.9-4.0) LVEF 79% LVIDd 4.3 (3.5-5.7) LVIDs 2.3 (2.0-3.5) %FS 47% LVPWd 1.0 (0.6-1.2) 2 DIMENSIONAL ASSESSMENT: RIGHT ATRIUM: NORMAL LEFT ATRIUM: NORMAL RIGHT VENTRICLE: NORMAL LEFT VENTRICLE: NORMAL TRICUSPID VALVE: NORMAL MITRAL VALVE: MITRAL ANNULAR CALCIFICATION PULMONIC VALVE: NORMAL AORTIC VALVE: NORMAL PERICARDIAL EFFUSION: NONE AORTIC ROOT: NORMAL LEFT VENTRICULAR WALL MOTION: NORMAL DOPPLER/COLOR FLOW: MILD TRICUSPID REGURGITATION. COMMENTS: MILD TRICUSPID REGURGITATION. NORMAL RIGHT VENTRICULAR SYSTOLIC PRESSURE. MITRAL ANNULAR CALCIFICATION. NORMAL LEFT VENTRICULAR SIZE AND FUNCTION. NO CLOT. NO VEGETATION. TECHNOLOGIST: STEVE [place]
--- NOTE | 2018-05-29 14:24 | P.SSS ---
Patient History Date of Service: 05/29/18 Primary Care Provider: Dr Mercer Reason for admission: CVA History of Present Illness: This is a 87-year-old female with significant past medical history Of high blood pressure, hyperlipidemia, who presented to the ED complaining of having some neck pain and uncontrolled hypertension. Patient stated that this morning when she woke up she was having some numbness and tingling in bilateral upper extremities and thus decided to come to the ER for further workup. Patient stated that she has been having elevated blood pressure for past week and has been followed up with her primary care doctor has been adjusting her blood pressure medication for past couple of weeks. Patient denies having any other symptoms at this time. It is denies having any shortness of breath fever chills nausea vomiting chest pain or any other neurological deficits. In the ER patient was found to have hypertensive urgency along with CT scan which was consistent with thalamic infarct and thus was referred over to admission for further workup. Allergies iodine Allergy (Severe, Verified 12/08/12 11:20) Anaphylaxis codeine [Codeine] Allergy (Intermediate, Verified 12/08/12 11:20) Nausea Penicillins Allergy (Intermediate, Verified 12/08/12 11:20) Hives Home Medications: Hydralazine HCl [Apresoline] 1 tab PO BID 05/28/18 Metoprolol Succinate 1 tab PO DAILY 05/28/18 Montelukast [Singulair*] 1 tab PO DAILY 05/28/18 Simvastatin 1 tab PO DAILY 05/28/18 - Past Medical/Surgical History Has patient received pneumonia vaccine in the past: No Diabetic: No -: HTN -: HLP -: arthritis -: arthritis in spine. -: L rotator cuff deterioration -: L hip surg -: bilat TKR - Family History Mother -: Heart disease Notes: CHF Father -: Heart disease, Hypertension - Social History Smoking Status: Former smoker Alcohol use: No CD- Drugs: No Caffeine use: Yes Place of Residence: Home Review of Systems 10-point ROS is otherwise unremarkable Physical Examination - Vital Signs Temperature: 98.1 F Blood Pressure: 150/63 Pulse: 60 Respirations: 18 Pulse Ox (%): 96 - Physical Exam General: Alert, In no apparent distress HEENT: Atraumatic, PERRLA, Mucous membr. moist/pink, EOMI, Sclerae nonicteric Neck: Supple, 2+ carotid pulse no bruit, No LAD, Without JVD or thyroid abnormality Respiratory: Clear to auscultation bilaterally, Normal air movement Cardiovascular: Regular rate/rhythm, Normal S1 S2 Gastrointestinal: Normal bowel sounds, No tenderness Musculoskeletal: No tenderness Integumentary: No rashes Neurological: Normal gait, Normal speech, Normal strength at 5/5 x4 extr, Normal tone, Normal affect Lymphatics: No axilla or inguinal lymphadenopathy - Diagnosis (Problem(s)) (1) Hypertensive urgency Current Visit: Yes Status: Acute Plan: Resolved (2) Thalamic infarction Current Visit: Yes Status: Chronic Plan: Chronic (3) HTN (hypertension) Current Visit: Yes Status: Chronic Qualifiers: Hypertension type: essential hypertension Qualified Code(s): I10 - Essential (primary) hypertension (4) Hyperlipidemia Current Visit: Yes Status: Chronic Treatment Summary: Overall during the hospital stay patient remained stable The patient was initially admitted to the hospital for bilateral upper extremity numbness plan hypertensive urgency. Patient was found initially on head CT to have a thalamic infarct. MRI however was consistent with chronic thalamic infarct along with micro vasculature infarct as well. Patient did have PT consulted here in the hospital and speech consulted here in the hospital who recommended modified barium swallow. Patient modified barium swallow was negative and patient then was discharged home under stable condition. Patient was asked to follow up with neurology outpatient as there is no acute findings at this time. Patient was given prescription for aspirin and Lipitor for prevention of stroke in the future. Patient was also educated extensively on diet and exercise to lower her blood pressure as this is the reason probably for her high blood pressure. Patient then was discharged home under stable condition - Disposition Disposition: ROUTINE DISCHARGE Condition: GOOD Patient Discharge Instructions: Please f.u with Dr Higgins in 1 to 2 week post discharge. New medication. ASA 81mg PO daily. Lipitor 80mg Daily. Stop. Simvastain. Continue with all other medication as precribed. Diet: Regular Activity: Ad beer
== END 2018-05-29 16:11 | disposition home or self-care (01) ==
LOC: ER 11:01 → OBSVTOIN 12:44 → INTOOBSV 12:44 → 4TH 12:44
PROVIDERS: ADMIT Family Medicine; ATTEND Family Medicine
DX: I16.0 Hypertensive urgency (principal); I10 Essential (primary) hypertension; E78.5 Hyperlipidemia, unspecified; Z87.891 Personal history of nicotine dependence; Z88.0 Allergy status to penicillin; R93.0 Abnormal findings on diagnostic imaging of skull and head, not elsewhere classified
CPT/HCPCS: 36415; 70450; 70544; 70549; 70553; 71045; 74230; 80048; 80053; 80061; 80076; 81003; 82550; 82553; 82607; 82962; 83721; 83735; 84100; 84132; 84443; 84484; 85025 ×2; 85610; 85652; 85730; 86592; 92610; 93005; 93306; 93880; 96374; 97163; 99285; A9577; G0378 ×2

== ENCOUNTER 2018-05-29 23:42 | Emergency (ER) | payer OTHER, MEDICARE ==
[2018-05-30] MEDS ORDERED: ACETAMINOPHEN 500 MG TAB ONE (01:34)
--- NOTE | 2018-05-30 02:29 | ER ---
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 I started a new medication today but my blood pressure is still very high. Transition of care: patient was not received from another setting of care. Onset of symptoms was May 30, 2018. Risk Assessment: Do you want to hurt yourself or someone else? Patient reports no desire to harm self or others. Initial Sepsis Screen: Does the patient meet any 2 criteria? No. Patient's initial sepsis screen is negative. Does the patient have a suspected source of infection? No. Patient's initial sepsis screen is negative. Care prior to arrival: None. 23:59 Method Of Arrival: Ambulatory tl1 23:59 Acuity: JESUS 2 tl1 Historical: - Allergies: 05/30 00:02 Codeine; tl1 00:02 Iodine; tl1 00:02 PENICILLINS; tl1 - Home Meds: 00:02 Grey Chewable Aspirin 81 mg Oral chew 1 tab once daily [Active]; hydralazine 50 mg tl1 Oral tab [Active]; metoprolol er 50mg daily [Active]; atorvastatin 80 mg oral tab 1 tab once daily [Active]; Vitamin C Oral [Active]; - PMHx: 00:02 Hyperlipidemia; Hypertension; tl1 - Immunization history:: Adult Immunizations up to date. - Social history:: Smoking status: Patient/guardian denies using tobacco. - Ebola Screening: : Patient negative for fever greater than or equal to 101.5 degrees Fahrenheit, and additional compatible Ebola Virus Disease symptoms Patient denies exposure to infectious person Patient denies travel to an Ebola-affected area in the 21 days before illness onset. - Family history:: not pertinent. - Hospitalizations: : The patient was recently seen at [facility], and discharged 1 day(s) ago. Screenin:04 Abuse screen: Denies threats or abuse. Denies injuries from another. Nutritional tl1 screening: No deficits noted. Nutritional screening: No deficits noted. Tuberculosis screening: No symptoms or risk factors identified. Fall Risk IV access (20 points). Assessment: 00:04 General: Appears in no apparent distress. Behavior is cooperative, appropriate for age, tl1 anxious. Pain: Denies pain. Neuro: Level of Consciousness is awake, alert, obeys commands, Oriented to person, place, time, situation. Cardiovascular: Reports palpitations, Denies chest pain, Capillary refill < 3 seconds JVD is absent Patient's skin is warm and dry. Cardiovascular: Capillary refill < 3 seconds Patient's skin is warm and dry. Respiratory: Airway is patent Trachea midline Respiratory effort is even, unlabored, Breath sounds are clear bilaterally. GI: Abdomen is non-distended, Bowel sounds present X 4 quads. Abd is soft and non tender X 4 quads. : No signs and/or symptoms were reported regarding the genitourinary system. EENT: No signs and/or symptoms were reported regarding the EENT system. Derm: No signs and/or symptoms reported regarding the dermatologic system. 02:52 Reassessment: Patient and/or family updated on plan of care and expected duration. Pain tl1 level reassessed. Patient is alert, oriented x 3, equal unlabored respirations, skin warm/dry/pink. Patient states feeling better. Patient states symptoms have improved. Vital Signs: 00:03 BP 217 / 61; Pulse 85; Resp 20; Temp 98.2; Pulse Ox 97% ; Weight 63.5 kg; Height 5 ft. tl1 2 in. (157.48 cm); Pain 0/10; 00:18 BP 201 / 65; Pulse 74; Resp 17; Pulse Ox 97% on R/A; tl1 00:34 BP 190 / 57; Pulse 67; Pulse Ox 98% on R/A; tl1 02:04 BP 177 / 56; Pulse 63; Resp 17; Pulse Ox 97% on R/A; tl1 02:53 BP 169 / 54; Pulse 69; Resp 16; Temp 98.1; Pulse Ox 98% ; Pain 0/10; tl1 00:03 Body Mass Index 25.61 (63.50 kg, 157.48 cm) tl1 ED Course: 05/29 23:47 Patient arrived in ED. es 23:48 Schwartz, Shelia-Sabino, DO is Private Physician. es 23:58 Ericka Murguia, RN is Primary Nurse. tl1 05/30 00:00 Triage completed. tl1 00:03 Arm band placed on right wrist. tl1 00:04 Patient has correct armband on for positive identification. Bed in low position. Call tl1 light in reach. Side rails up X 1. Adult w/ patient. lunchroom monitor on. Pulse ox on. NIBP on. Warm blanket given. 00:04 No provider procedures requiring assistance completed. tl1 00:08 Antoni Kimble MD is Attending Physician. wa 02:31 X-ray completed. Portable x-ray completed in exam room. Patient tolerated procedure kp1 well. 02:32 Hip Right 2 View XRAY In Process Unspecified. EDMS 02:52 Patient did not have IV access during this emergency room visit. tl1 Administered Medications: 01:34 CANCELLED (Patient Refused): Tylenol 1000 mg PO once tl1 01:34 Drug: Tylenol 500 mg Route: PO; tl1 02:52 Follow up: Response: No adverse reaction; No change in condition tl1 Outcome: 02:28 Discharge ordered by . wa 02:51 Discharged to home via wheelchair, with family. tl1 02:51 Condition: good 02:51 Discharge instructions given to patient, family, Instructed on discharge instructions, follow up and referral plans. Demonstrated understanding of instructions, follow-up care, medications. 02:54 Patient left the ED. tl1 Signatures: Dispatcher [employer] EDME Maria Guadalupe Fowler Ericka Murguia, RN RN tl1 Charley Hernandez 1 Antoni Kimble MD MD ga
--- NOTE | 2018-05-30 02:29 | EDPHYS ---
Physician Documentation [facility] Name: Monica Rankin Age: 87 yrs Sex: Female : 1930 Arrival Date: 05/29/2018 Time: 23:47 Bed 19 Private MD: Lyssa Schwartz H ED Physician Antoni Kimble HPI: 05/30 01:39 This 87 yrs old Female presents to ER via Ambulatory with complaints of High wa Blood Pressure, check heart. 01:39 The patient has elevated blood pressure and discovered this just d/c'd from this hsp. wa c/o elevated BP although took her metoprolol and hydralazine. Onset: The symptoms/episode began/occurred today. Modifying factors: The symptoms are aggravated by none, The symptoms are alleviated by none. Associated signs and symptoms: The patient has no apparent associated signs or symptoms. Severity of symptoms: At its worst the blood pressure was 190 mm Hg, in the emergency department the blood pressure is unchanged. The patient has experienced similar episodes in the past, multiple times. The patient has been recently seen by a physician: The patient has been recently been admitted at [facility], was discharged yesterday. states took her BP and was high so asked her family to bring her in. Historical: - Allergies: 00:02 Codeine; tl1 00:02 Iodine; tl1 00:02 PENICILLINS; tl1 - Home Meds: 00:02 Grey Chewable Aspirin 81 mg Oral chew 1 tab once daily [Active]; hydralazine 50 mg tl1 Oral tab [Active]; metoprolol er 50mg daily [Active]; atorvastatin 80 mg oral tab 1 tab once daily [Active]; Vitamin C Oral [Active]; - PMHx: 00:02 Hyperlipidemia; Hypertension; tl1 - Immunization history:: Adult Immunizations up to date. - Social history:: Smoking status: Patient/guardian denies using tobacco. - Ebola Screening: : Patient negative for fever greater than or equal to 101.5 degrees Fahrenheit, and additional compatible Ebola Virus Disease symptoms Patient denies exposure to infectious person Patient denies travel to an Ebola-affected area in the 21 days before illness onset. - Family history:: not pertinent. - Hospitalizations: : The patient was recently seen at [facility], and discharged 1 day(s) ago. ROS: 01:44 Constitutional: Negative for fever, chills, and weight loss, Eyes: Negative for injury, wa pain, redness, and discharge, ENT: Negative for injury, pain, and discharge, Neck: Negative for injury, pain, and swelling, Cardiovascular: Negative for chest pain, palpitations, and edema, Respiratory: Negative for shortness of breath, cough, wheezing, and pleuritic chest pain, Abdomen/GI: Negative for abdominal pain, nausea, vomiting, diarrhea, and constipation, Back: Negative for injury and pain, : Negative for injury, bleeding, discharge, and swelling, MS/Extremity: Negative for injury and deformity, Skin: Negative for injury, rash, and discoloration, Neuro: Negative for headache, weakness, numbness, tingling, and seizure, Psych: Negative for depression, anxiety, suicide ideation, homicidal ideation, and hallucinations. 01:44 All other systems are negative. 01:45 MS/extremity: Positive for pain, of the R hip/groin. wa Exam: 01:44 Constitutional: This is a well developed, well nourished patient who is awake, alert, wa and in no acute distress. Head/Face: Normocephalic, atraumatic. Eyes: Pupils equal round and reactive to light, extra-ocular motions intact. Lids and lashes normal. Conjunctiva and sclera are non-icteric and not injected. Cornea within normal limits. Periorbital areas with no swelling, redness, or edema. ENT: Nares patent. No nasal discharge, no septal abnormalities noted. Tympanic membranes are normal and external auditory canals are clear. Oropharynx with no redness, swelling, or masses, exudates, or evidence of obstruction, uvula midline. Mucous membranes moist. Neck: Trachea midline, no thyromegaly or masses palpated, and no cervical lymphadenopathy. Supple, full range of motion without nuchal rigidity, or vertebral point tenderness. No Meningismus. Chest/axilla: Normal chest wall appearance and motion. Nontender with no deformity. No lesions are appreciated. Cardiovascular: Regular rate and rhythm with a normal S1 and S2. No gallops, murmurs, or rubs. Normal PMI, no JVD. No pulse deficits. Respiratory: Lungs have equal breath sounds bilaterally, clear to auscultation and percussion. No rales, rhonchi or wheezes noted. No increased work of breathing, no retractions or nasal flaring. Abdomen/GI: Soft, non-tender, with normal bowel sounds. No distension or tympany. No guarding or rebound. No evidence of tenderness throughout. Back: No spinal tenderness. No costovertebral tenderness. Full range of motion. Skin: Warm, dry with normal turgor. Normal color with no rashes, no lesions, and no evidence of cellulitis. MS/ Extremity: Pulses equal, no cyanosis. Neurovascular intact. Full, normal range of motion. Neuro: Awake and alert, GCS 15, oriented to person, place, time, and situation. Cranial nerves II-XII grossly intact. Motor strength 5/5 in all extremities. Sensory grossly intact. Cerebellar exam normal. Normal gait. Psych: Awake, alert, with orientation to person, place and time. Behavior, mood, and affect are within normal limits. Vital Signs: 00:03 BP 217 / 61; Pulse 85; Resp 20; Temp 98.2; Pulse Ox 97% ; Weight 63.5 kg; Height 5 ft. tl1 2 in. (157.48 cm); Pain 0/10; 00:18 BP 201 / 65; Pulse 74; Resp 17; Pulse Ox 97% on R/A; tl1 00:34 BP 190 / 57; Pulse 67; Pulse Ox 98% on R/A; tl1 02:04 BP 177 / 56; Pulse 63; Resp 17; Pulse Ox 97% on R/A; tl1 02:53 BP 169 / 54; Pulse 69; Resp 16; Temp 98.1; Pulse Ox 98% ; Pain 0/10; tl1 00:03 Body Mass Index 25.61 (63.50 kg, 157.48 cm) tl1 MDM: 00:08 Patient medically screened. 01:45 Differential diagnosis:. 01:46 Differential diagnosis: HTN. asymptomatic. taking hydralazine and metoprolol. already md had daily dose. will monitor. will not drop BP aggressively at the moment. will reassess. 02:25 Data reviewed: vital signs, nurses notes. Test interpretation: by ED physician or md midlevel provider: R hip: noted for DJD. no acute process. Response to treatment: the patient's symptoms have mildly improved after treatment. 05/30 01:26 Order name: Hip Right 2 View XRAY md Administered Medications: 01:34 CANCELLED (Patient Refused): Tylenol 1000 mg PO once tl1 01:34 Drug: Tylenol 500 mg Route: PO; tl1 02:52 Follow up: Response: No adverse reaction; No change in condition tl1 Disposition: 05/30/18 02:28 Discharged to Home. 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 - Condition is Stable. - Discharge Instructions: Hypertension, [id number], Arthritis, [id number]. - Medication Reconciliation Form, Thank You Letter, Antibiotic Education, Prescription Opioid Use form. - Follow up: Private Physician; When: 2 - 3 days; Reason: Recheck today's complaints. - Problem is an ongoing problem. - Symptoms have improved. - Notes: you may take tylenol for pain as needed as discussed. continue your blood pressure medicines at home and follow up with your doctor within 2-3 days for further evaluation. You do not need to take your blood pressure so many times a day. Signatures: Dispatcher [employer] EDMS Ericka Murguia RN RN tl1 Antoni Kimble MD MD md Corrections: (The following items were deleted from the chart) 01:34 01:26 Tylenol 1000 mg PO once ordered. [facility] 02:54 02:28 05/30/2018 02:28 Discharged to Home. 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 Condition is Stable. Forms are Medication Reconciliation Form, Thank You Letter, Antibiotic Education, Prescription Opioid Use. Follow up: Private Physician; When: 2 - 3 days; Reason: Recheck today's complaints. Problem is an ongoing problem. Symptoms have improved. wa
--- NOTE | 2018-05-30 12:06 | RAD REPORT ---
EXAM DESCRIPTION: RAD - Hip Right 2 View - 05/30/2018 9:37 am CLINICAL HISTORY: PAIN COMPARISON: Hip Right 2 View dated 10/02/2017 FINDINGS: Prominent degenerative changes are present involving the right hip. No fracture, dislocati on, or evidence of AVN. Vascular calcification noted.
--- NOTE | 2018-05-31 08:56 | EKG ---
Test Date: 2018-05-29 Test Time: 23:58:20 Drug Safety Data Management Specialist: DANIKA MEASUREMENT RESULTS: Intervals: Rate: 73 GA: 156 QRSD: 76 QT: 412 QTc: 453 [place]: P: 65 GA: 156 QRS: 29 T: 70 INTERPRETIVE STATEMENTS: Normal sinus rhythm Normal ECG Compared to ECG 05/28/2018 11:33:39 Atrial premature complex(es) no longer present Electronically Signed On 05-31-18 08:53:31 CDT by Emre Salinas
== END 2018-05-30 02:54 | disposition home or self-care (01) ==
LOC: ER 23:42
DX: M16.11 Unilateral primary osteoarthritis, right hip (principal); E78.5 Hyperlipidemia, unspecified; Z79.82 Long term (current) use of aspirin; Z88.0 Allergy status to penicillin; Z88.5 Allergy status to narcotic agent; Z91.048 Other nonmedicinal substance allergy status
CPT/HCPCS: 93005; 99284